=== PATIENT | male | born 1960 | race Caucasian/White ===

== ENCOUNTER → 2017-01-19 | Outpatient (REF) | payer OTHER ==
[2017-01-19 16:16] LABS: ALBUMIN 3.4 GM/DL (3.2-5.2); ALKALINE PHOSPHATASE 69 U/L (45-117); ALT/SGPT 26 U/L (12-78); ANION GAP 9 MEQ/L (8-16); AST/SGOT 26 U/L (15-37); BILIRUBIN,TOTAL 0.6 MG/DL (0.2-1.0); BLOOD UREA NITROGEN 17 MG/DL (7-18); CALCIUM LEVEL 9.4 MG/DL (8.5-10.1); CARBON DIOXIDE LEVEL 29 MEQ/L (21-32); CHLORIDE LEVEL 104 MEQ/L (98-107); CHOLESTEROL LEVEL 149 MG/DL (<200); CREATININE FOR GFR 0.72 MG/DL (0.70-1.30); GLOMERULAR FILTRATION RATE > 60.0 (>56); GLUCOSE, FASTING 109 MG/DL (70-105); POTASSIUM SERUM 4.6 MEQ/L (3.5-5.1); SODIUM LEVEL 142 MEQ/L (136-145); TOTAL PROTEIN 6.5 GM/DL (6.4-8.2); TRIGLYCERIDES LEVEL 126 MG/DL (<150)
== END ==
LOC: M SFHCLACO 08:05
PROVIDERS: ATTEND Physician Assistant
DX: I10 Essential (primary) hypertension (principal); E78.2 Mixed hyperlipidemia

== ENCOUNTER → 2017-04-09 | Outpatient (CLI) | payer OTHER ==
--- NOTE | 2017-04-09 15:29 | REP ---
MRI RIGHT KNEE: TECHNIQUE: Axial proton density fat saturation, sagittal proton density T2 STIR, water excitation, coronal proton density, proton density fat saturation. There is an extensive complex tear of the anterior and posterior horns of the medial meniscus. There may be a tear of the central aspect of the posterior horn of the lateral meniscus. There is increased signal on T2-weighted images involving the anterior cruciate ligament. The fibers of the ACL appear to maintain their course and the findings are most consistent with a partial tear. The posterior cruciate ligament and collateral ligaments are intact. The extensor mechanism is intact. There is mild to moderate global chondromalacia of the patella. There is severe chondromalacia of the medial femoral condyle/tibial plateau with moderate underlying subchondral marrow edema at those locations. There is a moderate joint effusion. There is moderate spurring at the femoral condyles. IMPRESSION: Extensive complex tear of the anterior and posterior horns of the medial meniscus. There may be a tear of the central aspect of the posterior horn of the lateral meniscus. There are findings most consistent with a partial tear of the anterior cruciate ligament. 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 Severe chondromalacia with subchondral marrow edema, medial femoral condyle and tibial plateau. Moderate joint effusion. Signed by Esvin Culver MD 04/09/2017 05:26 P
== END ==
LOC: M RAD 10:43
PROVIDERS: ATTEND Physician Assistant
DX: S83.231A Complex tear of medial meniscus, current injury, right knee, initial encounter (principal); M22.41 Chondromalacia patellae, right knee; M25.461 Effusion, right knee; X58.XXXA Exposure to other specified factors, initial encounter; Y92.9 Unspecified place or not applicable; Y93.9 Activity, unspecified; Y99.8 Other external cause status

== ENCOUNTER 2017-05-02 14:49 | Inpatient (IN) | payer OTHER ==
[~2017-05-02] VITALS: Ht 190.5 cm; Wt 149.7 kg
[2017-05-02] MEDS ORDERED: ALBU17IN2 INH (15:04)
[2017-05-02] MEDS ORDERED: ASPI81TA85 PO (15:04)
[2017-05-02] MEDS ORDERED: BIAX500T13 PO (15:04)
[2017-05-02] MEDS ORDERED: INSP25TA PO (15:04)
[2017-05-02] MEDS ORDERED: LIPI10TA PO (15:04)
[2017-05-02] MEDS ORDERED: CARV25TA PO (15:04)
[2017-05-02] MEDS ORDERED: NAPR500T PO (15:04)
[2017-05-02] MEDS ORDERED: FLUT22IN INH (15:04)
[2017-05-02] MEDS ORDERED: CYCL10TA PO (15:04)
[2017-05-02] MEDS ORDERED: HYDR12.55 PO (15:04)
[2017-05-02] MEDS ORDERED: VANCOMYCIN HCL 1,000 MG, VIAL MATE ADAPTER 1 EACH in D5W 250 ML IV ONE ×3 (17:30→21:15)
[2017-05-02 17:47] LABS: BASO # 0.1 K/mm3 (0.0-0.2); BASO % 0.3 % (0.0-1.0); EOS # 0.1 K/mm3 (0.0-0.50); EOS % 0.7 % (0.0-3.0); LARGE UNSTAINED CELL # 0.4 K/mm3 (0.0-0.4); LYMPH # 2.2 K/mm3 (1.5-4.5); LYMPH % 9.7 % (24.0-44.0); MEAN CORPUSCULAR HEMOGLOBIN 28.9 pg (27.0-33.0); MEAN CORPUSCULAR HGB CONC 34.3 g/dl (32.0-36.5); MEAN CORPUSCULAR VOLUME 84.3 fl (80.0-96.0); MONO # 1.3 K/mm3 (0.0-0.8); MONO % 7.1 % (0.0-5.0); NEUTROPHILS # 14.8 K/mm3 (1.8-7.7); NEUTROPHILS % 80.2 % (36.0-66.0); PLATELET COUNT, AUTOMATED 195 k/mm3 (150-450); RED CELL DISTRIBUTION WIDTH 14.1 % (11.5-14.5); WHITE BLOOD COUNT 18.4 K/mm3 (4.0-10.0)
[2017-05-02 18:17] LABS: ANION GAP 7 MEQ/L (8-16); BLOOD UREA NITROGEN 18 MG/DL (7-18); CALCIUM LEVEL 8.3 MG/DL (8.5-10.1); CARBON DIOXIDE LEVEL 29 MEQ/L (21-32); CHLORIDE LEVEL 103 MEQ/L (98-107); CREATININE FOR GFR 0.94 MG/DL (0.70-1.30); GLOMERULAR FILTRATION RATE > 60.0 (>56); GLUCOSE, FASTING 119 MG/DL (70-105); POTASSIUM SERUM 3.6 MEQ/L (3.5-5.1); SODIUM LEVEL 139 MEQ/L (136-145)
[2017-05-02] MEDS ORDERED: PIPERACILLIN/TAZOBACTAM SOD 4.5 GM in D5W MINI-BAG PLUS 50 ML IV ONE (18:45)
[2017-05-02] MEDS ORDERED: HYDR25TAB PO (18:45)
[2017-05-02] MEDS ORDERED: ALBU17IN INH (18:45)
[2017-05-02] MEDS ORDERED: BACT800T5 PO (18:46)
[2017-05-02] MEDS ORDERED: ALB2.5NEB INH (18:50)
[2017-05-02] MEDS ORDERED: BISACODYL 10 MG SUPP PR PRN (19:15)
[2017-05-02] MEDS ORDERED: MORPHINE 2 MG/ML 1ML SYRINGE IV PRN (19:15)
[2017-05-02] MEDS ORDERED: ALBUTEROL 90 MCG/ACT 8GM HFA INHALER INH PRN (19:15)
[2017-05-02] MEDS ORDERED: IPRATROPIUM 0.5MG/ALBUTEROL 2.5MG INH SOL UD 3ML (DUONEB)(J7620) NEB PRN (19:15)
[2017-05-02] MEDS ORDERED: CYCLOBENZAPRINE 10 MG TAB PO PRN (19:15)
[2017-05-02 19:46] LABS: ERYTHROCYTE SEDIMENTATION RATE 41 mm/hr (0-20)
[2017-05-02] MEDS ORDERED: **hydrALAZINE** 10 MG TAB PO PRN (20:00)
[2017-05-02] MEDS: IPRATROPIUM 0.5MG/ALBUTEROL 2.5MG INH SOL UD 3ML (DUONEB)(J7620) NEB SCH (20:00)
[2017-05-02 20:03] LABS: URIC ACID 7.5 MG/DL (3.5-7.2)
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
[2017-05-02 20:50] VITALS: BP 150/72
[2017-05-02 22:00] VITALS: BP 141/70
[2017-05-02] MEDS: NS 1,000 ML IV SCH (22:02)
[2017-05-02] MEDS: CARVedilol 12.5 MG TAB PO SCH (22:03)
[2017-05-02] MEDS: KETOROLAC 30 MG/ML VIAL (J1885) IV PRN (22:03)
[2017-05-02] MEDS: HEPARIN SOD (PORCINE) 5000 UNITS/ML VIAL SC SCH (22:04)
--- NOTE | 2017-05-02 22:21 | PHACANCOPD ---
PHARMACY VANCOMYCIN DOSING Pt Demographics Demographics Patient Age:57 , Weight:149.700 , Gender: male Adjusted Body Weight Date: 05/02/17, Adjusted Body Weight: [99.5] Kg Events Past 24 Hours Events Past 24 Hours: NO: Dialysis, Diuretic Therapy, Change in CrCl, Fever, Elevation in WBC, Pending Diagnostics, Pending Procedures, Other Vancomycin Vancomycin Target Ranges: 15-20 mcg/ml Vancomycin Load Y/N: Yes Load Dose Date Time Vancomycin Load Dose: 2000MG Date: 05-02 Time: 1999 Vancomycin Dose Date: 05/02/17. Current Vancomycin Dose: [1000MG Q6H] Intermittent Dosing?: No Labs Labs Item Value Date Time White Blood Count 18.4 K/mm3 H 05/02/171738 Creatinine 0.94 MG/DL 05/02/171738 Blood Urea Nitrogen 18 MG/DL 05/02/171738 Vital Signs Label Value Date Time Patient Temperature 99.7 degrees F 05/02/172027 Temperature Source Oral 05/02/172027 Micro Microbiology 05/02/17 Blood Culture, Received Pending 05/02/17 Blood Culture, Received Pending Creatinine Clearance Date:05/02/17. Creatinine Clearance: [105]. Pending Labs Trough 07-10 @1900 Assessment and Plan Maintaining Current Dose?: Yes Reason for dose change: No Dose Change Pharmacist Note Pharmacist Note Date: 05/02/17. Pharmacist note:Dosed at 1000mg q6h with a trough ordered for 07- 10 @1900. Will continue to monitor and make adjustments as needed. RANDY ALMANZA PHARMACY May 02, 2017 22:21
[2017-05-03] MEDS: PIPERACILLIN/TAZOBACTAM SOD 3.375 GM in D5W MINI-BAG PLUS 50 ML IV SCH ×3 (02:02→18:16)
[2017-05-03] MEDS: VANCOMYCIN HCL 1,000 MG, VIAL MATE ADAPTER 1 EACH in D5W 250 ML IV SCH ×4 (04:42→22:03)
[2017-05-03] MEDS: NS 1,000 ML IV SCH (05:13)
[2017-05-03] MEDS: HEPARIN SOD (PORCINE) 5000 UNITS/ML VIAL SC SCH ×3 (05:21→21:18)
[2017-05-03 05:53] LABS: MEAN CORPUSCULAR HGB CONC 34.3 g/dl (32.0-36.5); MEAN CORPUSCULAR VOLUME 84.3 fl (80.0-96.0)
[2017-05-03 06:00] VITALS: BP 127/63
[2017-05-03 06:26] LABS: ANION GAP 8 MEQ/L (8-16); BLOOD UREA NITROGEN 17 MG/DL (7-18); CALCIUM LEVEL 7.8 MG/DL (8.5-10.1); CARBON DIOXIDE LEVEL 27 MEQ/L (21-32); CHLORIDE LEVEL 103 MEQ/L (98-107); CREATININE FOR GFR 0.86 MG/DL (0.70-1.30); GLOMERULAR FILTRATION RATE > 60.0 (>56); GLUCOSE, FASTING 133 MG/DL (70-105); POTASSIUM SERUM 3.2 MEQ/L (3.5-5.1); SODIUM LEVEL 138 MEQ/L (136-145)
[2017-05-03] MEDS ORDERED: POTASSIUM CHLORIDE 10 MEQ SR TABLET PO ONE (07:30)
[2017-05-03] MEDS: IPRATROPIUM 0.5MG/ALBUTEROL 2.5MG INH SOL UD 3ML (DUONEB)(J7620) NEB SCH ×3 (07:30→19:55)
[2017-05-03] MEDS: FLUTICASONE HFA 220 MCG 12 GM INHALER (FLOVENT) INH SCH ×2 (08:10→19:56)
[2017-05-03] MEDS: hydroCHLOROthiazide 25 MG TAB PO SCH (09:55)
[2017-05-03] MEDS: ASPIRIN 81 MG ENTERIC TAB PO SCH (09:57)
[2017-05-03] MEDS: CARVedilol 12.5 MG TAB PO SCH ×2 (09:57→21:18)
[2017-05-03] MEDS: ATORVASTATIN 10 MG TAB PO SCH (09:57)
[2017-05-03] MEDS: KETOROLAC 30 MG/ML VIAL (J1885) IV PRN (11:01)
--- NOTE | 2017-05-03 12:27 | IPN ---
DATE: 05/03/2017 SUBJECTIVE: Mr. De Anda is a 57-year-old male who was seen and examined at the bedside. Patient denies chest pain, orthopnea, PND. Patient also denies nausea , vomiting, diarrhea, constipation. Patient expressed that his right lower extremity pain has decreased compared to yesterday as well as the swelling. Also patient expressed that he feels that the erythema has also decreased. Patient denies overnight issues. Patient has not ambulated today. OBJECTIVE: Vital signs: Temperature 98.9, pulse 67, respiratory rate 19, blood pressure 127/63, pulse oximetry 96 on room air. Total intake from yesterday 990 , total output 0. GENERAL APPEARANCE: Patient was lying in bed, no acute distress. Patient was awake, alert, oriented to time, place and person. HEENT: Normocephalic, atraumatic. Pupils are equal and reactive to light. Oral mucosa is moist. NECK: Soft, supple, no thyromegaly. HEART: Regular rate and rhythm, normal S1, S2. LUNGS: Clear breath sounds bilaterally. Equal air movement. No rales, rhonchi or wheezing was noticed. ABDOMEN: Obese, soft, nontender to palpation. Positive bowel sounds in all quadrants. EXTREMITIES: Patient has right lower extremity pitting edema. Also the skin on the right lower extremity is warm to touch, however, erythema has decreased compared to yesterday. Patient is able to move his toes. Strength of the foot has decreased on the right compared to left secondary to the pain. No open wound, bleeding or drainage was noticed. Patient has normal range of motion of the left lower extremity. Patient has normal sensation in both lower extremities. Patient has positive pulse in both lower extremities. Patient is tender to palpation on the right lower extremity. LABORATORY DATA: White blood cells 12.0, red blood cells 4.11, hemoglobin 11.9, hematocrit 34.7. MCV 84.3, MCH 29, MCHC 34.3, RDW 14, platelet count 190. Sodium 138, potassium 3.2, chloride 103, carbon dioxide 27, anion gap 8, BUN 17, creatinine 0.86. Glomerular filtration rate 160. Fasting glucose 133. Estimated glucose level 137. Estimated A1c 6.4. Calcium 7.8, C-reactive protein 18.2. ASSESSMENT AND PLAN: 1. Hypokalemia. Today patient's potassium has decreased to 3.2. We have ordered 40 mEq of potassium by mouth. We will recheck the potassium again tomorrow. 2. Hypocalcemia. I have ordered albumin level and the result is pending at this time. We will calculate the corrected calcium level. If the calcium is low, we will supply it. 3. Cellulitis of the right lower extremity. Physical examination indicated that patient is better today. Also according to him, his pain has decreased. We will continue patient on current dose of vancomycin and Zosyn. Blood culture is pending at this time. Patient continues to have leukocytosis however it has decreased compared to yesterday. Also patient's C-reactive protein has decreased. Patient is afebrile. We will continue to monitor patient for any abdominal symptoms. I do not believe that this is caused by gout. For pain control, patient is on Toradol 20 mg every 6 hours as needed pain, Flexeril 10 mg three times daily as needed pain for muscle spasm. 4. Hyperlipidemia. Will continue patient on statin (Lipitor 10 mg by mouth daily). 5. Hypertension. At this time, patient is on hydrochlorothiazide 25 mg by mouth daily as well as carvedilol 25 mg by mouth twice daily. Patient is also on hydralazine 10 mg every 6 hours as needed by mouth for systolic blood pressure above 150. However at this time, patient's blood pressure is stable. We will continue to monitor patient for any abnormal symptoms. 6. Deep venous thrombosis (DVT) prophylaxis. Patient is on heparin 5000 daily at bedtime and before meals. 7. Abnormal MRI of the right knee. MRI was done on 04/09/2017 which indicated extensive complex tear of the anterior and posterior horns of the medial meniscus. There may be a tear of the central aspect of the posterior horn of the lateral meniscus. There are findings most consistent with the parietal tear of the anterior cruciate ligament. Also mild to moderate chondromalacia of the patella diffusely, severe chondromalacia with subchondral marrow edema medial femoral condyle and tibial patella as well as moderate joint effusion and this finding was consulted with the orthopedic group. Dr. Driver indicated that patient needs to be followed up as outpatient. Therefore, the consult was canceled. At the time of discharge, patient needs to be followed up with orthopedics. 8. Morbid obesity. BMI 41.3. This is a chronic issue. My preceptor for this patient encounter was Dr. Jessica Fisher. The preceptor was physically present in the building during the encounter and was fully available. As needed, all aspects of the patient interview, examination, medical decision making process, and medical care plan development were reviewed and approved by the preceptor. The preceptor is aware and concurs with the plan as stated in the body of this note and will attest to such by his/her cosignature. I, Jessica Fisher, have both independently examined this patient as well as reviewed the documentation. I have discussed in detail with the resident the findings and plan of treatment as documented in the residents documentation. I will continue to follow the patient and offer further guidance to the patients care as necessary during this hospital stay. CR
[2017-05-03 13:31] LABS: ALBUMIN 2.7 GM/DL (3.2-5.2)
[2017-05-03 14:00] VITALS: BP 135/65
[2017-05-03] MEDS: ACETAMINOPHEN TAB 650MG DOSE (2X325MG) PO PRN (21:19)
--- NOTE | 2017-05-03 21:59 | PHACANCOPD ---
PHARMACY VANCOMYCIN DOSING Pt Demographics Demographics Patient Age:57 , Weight:149.700 , Gender: male Adjusted Body Weight Date: 05/02/17, Adjusted Body Weight: [99.5] Kg Vancomycin Vancomycin Target Ranges: 15-20 mcg/ml Vancomycin Load Y/N: Yes Load Dose Date Time Vancomycin Load Dose: 2000MG Date: 05-02 Time: 1999 Vancomycin Dose Date: 05/02/17. Current Vancomycin Dose: [1000MG Q6H] Intermittent Dosing?: No Labs Micro Microbiology 05/02/17 Blood Culture - Preliminary, Resulted No growth after 24 hours . All specim... 05/02/17 Blood Culture - Preliminary, Resulted No growth after 24 hours . All specim... Creatinine Clearance Date:05/02/17. Creatinine Clearance: [105]. Pending Labs Trough 07-10 @1900 Assessment and Plan Maintaining Current Dose?: Yes Reason for dose change: No Dose Change Pharmacist Note Pharmacist Note 05/03/17: Trough today resulted at 13.0mcg/ml. The patient's scr remains stable today at 0.86. WBC remains elevated but is trending down, ESR and CRP are still elevated, and the patient remains afebrile. Blood cultures are still pending. We will continue the patient's current regimen of 1g IV Q6H for the treatment of RLE cellulitis. We will continue to monitor and draw further levels/make adjustments as needed. Date: 05/02/17. Pharmacist note:Dosed at 1000mg q6h with a trough ordered for 07- 10 @1900. Will continue to monitor and make adjustments as needed. MELLISA CHURCH PHARMACY May 03, 2017 21:59
[2017-05-03 22:00] VITALS: BP 140/69
[2017-05-04] MEDS: IPRATROPIUM 0.5MG/ALBUTEROL 2.5MG INH SOL UD 3ML (DUONEB)(J7620) NEB SCH ×5 (01:24→23:45)
[2017-05-04] MEDS: PIPERACILLIN/TAZOBACTAM SOD 3.375 GM in D5W MINI-BAG PLUS 50 ML IV SCH ×3 (02:34→17:53)
[2017-05-04] MEDS: VANCOMYCIN HCL 1,000 MG, VIAL MATE ADAPTER 1 EACH in D5W 250 ML IV SCH ×4 (03:49→21:27)
[2017-05-04] MEDS: ACETAMINOPHEN TAB 650MG DOSE (2X325MG) PO PRN (03:53)
[2017-05-04] MEDS: HEPARIN SOD (PORCINE) 5000 UNITS/ML VIAL SC SCH ×3 (05:07→21:04)
[2017-05-04 06:00] VITALS: BP 135/65
[2017-05-04] MEDS: FLUTICASONE HFA 220 MCG 12 GM INHALER (FLOVENT) INH SCH ×2 (07:18→19:59)
[2017-05-04 07:35] LABS: MEAN CORPUSCULAR HEMOGLOBIN 28.7 pg (27.0-33.0); MEAN CORPUSCULAR HGB CONC 33.7 g/dl (32.0-36.5); MEAN CORPUSCULAR VOLUME 85.2 fl (80.0-96.0); RED CELL DISTRIBUTION WIDTH 14.1 % (11.5-14.5); WHITE BLOOD COUNT 11.3 K/mm3 (4.0-10.0)
[2017-05-04 07:45] LABS: ANION GAP 7 MEQ/L (8-16); BLOOD UREA NITROGEN 14 MG/DL (7-18); CALCIUM LEVEL 8.3 MG/DL (8.5-10.1); CARBON DIOXIDE LEVEL 28 MEQ/L (21-32); CHLORIDE LEVEL 104 MEQ/L (98-107); CREATININE FOR GFR 0.78 MG/DL (0.70-1.30); GLOMERULAR FILTRATION RATE > 60.0 (>56); GLUCOSE, FASTING 112 MG/DL (70-105); SODIUM LEVEL 139 MEQ/L (136-145)
[2017-05-04] MEDS: ATORVASTATIN 10 MG TAB PO SCH (09:46)
[2017-05-04] MEDS: ASPIRIN 81 MG ENTERIC TAB PO SCH (09:46)
[2017-05-04] MEDS: hydroCHLOROthiazide 25 MG TAB PO SCH (09:46)
[2017-05-04] MEDS: CARVedilol 12.5 MG TAB PO SCH ×2 (09:47→21:04)
--- NOTE | 2017-05-04 12:06 | REP ---
RIGHT FOOT, FOUR VIEWS: HISTORY: Cellulitis. There is no acute fracture or dislocation. The joint spaces are normal in appearance. Osteophytes are present on the inferior and posterior calcaneus. Soft tissue swelling is present. IMPRESSION: There is no acute fracture or dislocation. Signed by Yaya Rojas MD 05/04/2017 12:10 P
[2017-05-04] MEDS: KETOROLAC 30 MG/ML VIAL (J1885) IV PRN ×2 (13:09→21:05)
--- NOTE | 2017-05-04 13:44 | IPNPDOC ---
Text Note Date of Service The patient was seen on 05/04/17. NOTE Subjective: Patient states that the swelling and redness in the right lower extremity is improving. Objective: Vitals: (see below) General: No acute distress, laying comfortably in bed. HEENT: Moist mucous membranes. Neck: No JVD or lymphadenopathy Cardiac: RRR, No murmurs Pulm: Clear to auscultation b/l. No wheezing, rhonchi Abd: NT/ND + BS Ext: Right foot cellulitis with 1+ pitting edema. Area of cellulitis was previously marked on admission with significant improvements of the demarcation. Distal pulses intact. Labs (see below) Images: Right foot x ray 05/04/17 There is no acute fracture or dislocation. The joint spaces are normal in appearance. Osteophytes are present on the inferior and posterior calcaneus. Soft tissue swelling is present. IMPRESSION:There is no acute fracture or dislocation. Assessment/Plan 1. Right lower extremity cellulitis- improved with IV antibiotics. Right foot X- ray (see above). Leukocyte is improving. CRP improving. Pain control. One blood culture positive for gram-positive cocci in clusters. Blood cultures have been repeated 2. Hypertension- controlled 3. Hyperlipidemia- on statin 4. Hypokalemia- replaced 5. Abnormal right knee MRI with extensive complex tear. Dr. Fisher had spoken to the orthopedics recommended outpatient follow-up. DVT prophylaxis- heparin subcutaneous VS,Fishbone, I+O VS, Fishbone, I+O Laboratory Tests 05/04/17 07:10 Red Blood Count 4.31, Mean Corpuscular Volume 85.2, Mean Corpuscular Hemoglobin 28.7, Mean Corpuscular Hemoglobin Concent 33.7, Red Cell Distribution Width 14.1 , Calcium Level 8.3 L Vital Signs Date Time Temp Pulse Resp B/P (MAP) Pulse Ox O2 Delivery O2 Flow Rate FiO2 05/04/17 09:47 65 138/70 05/04/17 09:00 Room Air 05/04/17 06:00 98.9 18 95 I&O- Last 24 Hours up to 6 AM 05/04/17 06:00 Intake Total 3610 ml Output Total 4600 ml Balance -990 ml GAVIOTA TUBBS MD May 04, 2017 13:44
[2017-05-04 14:00] VITALS: BP 147/91
--- NOTE | 2017-05-04 17:08 | REP ---
Bilateral lower extremity Duplex Doppler venous ultrasound: Real time compression and duplex Doppler interrogation of the bilateral lower extremity deep venous system is performed. Bilaterally, the common femoral, superficial femoral and popliteal veins are fully compressible with transducer pressure and demonstrate normal spontaneous and phasic flow, without evidence of deep venous thrombosis. Impression: No evidence of deep venous thrombosis of the bilateral lower extremity femoral popliteal venous system. Signed by Esvin Culver MD 05/04/2017 04:59 P
[2017-05-04 22:00] VITALS: BP 142/65
[2017-05-05] MEDS: PIPERACILLIN/TAZOBACTAM SOD 3.375 GM in D5W MINI-BAG PLUS 50 ML IV SCH ×3 (01:47→17:46)
[2017-05-05] MEDS: VANCOMYCIN HCL 1,000 MG, VIAL MATE ADAPTER 1 EACH in D5W 250 ML IV SCH ×3 (04:01→16:00)
[2017-05-05] MEDS: ACETAMINOPHEN TAB 650MG DOSE (2X325MG) PO PRN (04:04)
[2017-05-05 06:00] VITALS: BP 120/72
[2017-05-05] MEDS: HEPARIN SOD (PORCINE) 5000 UNITS/ML VIAL SC SCH ×3 (06:01→22:12)
[2017-05-05 06:12] LABS: MEAN CORPUSCULAR HGB CONC 34.1 g/dl (32.0-36.5); MEAN CORPUSCULAR VOLUME 84.9 fl (80.0-96.0); RED CELL DISTRIBUTION WIDTH 13.9 % (11.5-14.5); WHITE BLOOD COUNT 10.5 K/mm3 (4.0-10.0)
[2017-05-05] MEDS: KETOROLAC 30 MG/ML VIAL (J1885) IV PRN ×2 (06:16→14:14)
[2017-05-05 06:26] LABS: ANION GAP 7 MEQ/L (8-16); BLOOD UREA NITROGEN 16 MG/DL (7-18); CALCIUM LEVEL 8.3 MG/DL (8.5-10.1); CARBON DIOXIDE LEVEL 27 MEQ/L (21-32); CHLORIDE LEVEL 103 MEQ/L (98-107); CREATININE FOR GFR 0.81 MG/DL (0.70-1.30); GLOMERULAR FILTRATION RATE > 60.0 (>56); GLUCOSE, FASTING 119 MG/DL (70-105); POTASSIUM SERUM 3.6 MEQ/L (3.5-5.1); SODIUM LEVEL 137 MEQ/L (136-145)
[2017-05-05] MEDS: IPRATROPIUM 0.5MG/ALBUTEROL 2.5MG INH SOL UD 3ML (DUONEB)(J7620) NEB SCH ×3 (07:28→19:44)
[2017-05-05] MEDS: FLUTICASONE HFA 220 MCG 12 GM INHALER (FLOVENT) INH SCH ×2 (07:28→19:44)
[2017-05-05 08:05] VITALS: BP 145/69
--- NOTE | 2017-05-05 08:33 | IPNPDOC ---
Text Note Date of Service The patient was seen on 05/05/17. NOTE Subjective: Patient states that the swelling and redness in the right lower extremity continues to improve. no fevers overnuight. Objective: Vitals: (see below) General: No acute distress, laying comfortably in bed. HEENT: Moist mucous membranes. Neck: No JVD or lymphadenopathy Cardiac: RRR, No murmurs Pulm: Clear to auscultation b/l. No wheezing, rhonchi Abd: NT/ND + BS Ext: Right foot cellulitis with 1+ pitting edema. Area of cellulitis was previously marked on admission with significant improvements of the demarcation. Distal pulses intact. Labs (see below) Images: Right foot x ray 05/04/17 There is no acute fracture or dislocation. The joint spaces are normal in appearance. Osteophytes are present on the inferior and posterior calcaneus. Soft tissue swelling is present. IMPRESSION:There is no acute fracture or dislocation. BLE U/s 05/04/17 - negative for DVT Assessment/Plan 1. Right lower extremity cellulitis- improved with IV antibiotics. Right foot X- ray (see above). Leukocyte is improving. CRP improving. Pain control. One blood culture positive for gram-positive cocci in clusters. Blood cultures have been repeated and pending. 2. Hypertension- controlled 3. Hyperlipidemia- on statin 4. Hypokalemia- replaced 5. Abnormal right knee MRI with extensive complex tear. Dr. Fisher had spoken to the orthopedics recommended outpatient follow-up. 6. LE edema - started on lasix. DVT prophylaxis- heparin subcutaneous Plan to d/c when repeat blood cx negative. VS,Fishbone, I+O VS, Fishbone, I+O Laboratory Tests 05/05/17 05:59 Red Blood Count 4.16 L, Mean Corpuscular Volume 84.9, Mean Corpuscular Hemoglobin 29.0, Mean Corpuscular Hemoglobin Concent 34.1, Red Cell Distribution Width 13.9, Calcium Level 8.3 L Vital Signs Date Time Temp Pulse Resp B/P (MAP) Pulse Ox O2 Delivery O2 Flow Rate FiO2 05/05/17 08:05 97.8 75 18 145/69 (94) 95 Room Air I&O- Last 24 Hours up to 6 AM 05/05/17 06:00 Intake Total 2640 ml Output Total 3075 ml Balance -435 ml GAVIOTA TUBBS MD May 05, 2017 08:33
[2017-05-05] MEDS: hydroCHLOROthiazide 25 MG TAB PO SCH (08:35)
[2017-05-05] MEDS: ASPIRIN 81 MG ENTERIC TAB PO SCH (08:36)
[2017-05-05] MEDS: ATORVASTATIN 10 MG TAB PO SCH (08:36)
[2017-05-05] MEDS: CARVedilol 12.5 MG TAB PO SCH ×2 (08:37→19:58)
[2017-05-05] MEDS: FUROSEMIDE 40 MG/4 ML VIAL (J1940) IV SCH ×2 (13:20→17:46)
[2017-05-05 14:00] VITALS: BP 137/67
[2017-05-05] MEDS: DOXYCYCLINE HYCLATE 100 MG TAB PO SCH (19:58)
[2017-05-05 20:00] VITALS: BP 165/55
[2017-05-06] MEDS: IPRATROPIUM 0.5MG/ALBUTEROL 2.5MG INH SOL UD 3ML (DUONEB)(J7620) NEB SCH ×2 (01:29→07:22)
[2017-05-06] MEDS: PIPERACILLIN/TAZOBACTAM SOD 3.375 GM in D5W MINI-BAG PLUS 50 ML IV SCH ×2 (02:22→10:29)
[2017-05-06 05:35] VITALS: BP 151/74
[2017-05-06] MEDS: HEPARIN SOD (PORCINE) 5000 UNITS/ML VIAL SC SCH (05:47)
[2017-05-06 07:20] LABS: MEAN CORPUSCULAR HEMOGLOBIN 28.9 pg (27.0-33.0); MEAN CORPUSCULAR HGB CONC 34.3 g/dl (32.0-36.5); MEAN CORPUSCULAR VOLUME 84.3 fl (80.0-96.0); RED CELL DISTRIBUTION WIDTH 13.4 % (11.5-14.5); WHITE BLOOD COUNT 11.2 K/mm3 (4.0-10.0)
[2017-05-06] MEDS: FLUTICASONE HFA 220 MCG 12 GM INHALER (FLOVENT) INH SCH (07:22)
[2017-05-06 07:30] LABS: ANION GAP 7 MEQ/L (8-16); BLOOD UREA NITROGEN 17 MG/DL (7-18); CALCIUM LEVEL 8.8 MG/DL (8.5-10.1); CARBON DIOXIDE LEVEL 29 MEQ/L (21-32); CHLORIDE LEVEL 102 MEQ/L (98-107); CREATININE FOR GFR 0.81 MG/DL (0.70-1.30); GLOMERULAR FILTRATION RATE > 60.0 (>56); GLUCOSE, FASTING 108 MG/DL (70-105); POTASSIUM SERUM 3.9 MEQ/L (3.5-5.1); SODIUM LEVEL 138 MEQ/L (136-145)
[2017-05-06 08:05] VITALS: BP 141/72
[2017-05-06 08:07] VITALS: BP 141/72
[2017-05-06] MEDS ORDERED: DOXY100T2 PO (08:26)
[2017-05-06] MEDS: ATORVASTATIN 10 MG TAB PO SCH (08:54)
[2017-05-06 08:55] VITALS: BP 141/72
[2017-05-06] MEDS: CARVedilol 12.5 MG TAB PO SCH (08:55)
[2017-05-06] MEDS: ASPIRIN 81 MG ENTERIC TAB PO SCH (08:56)
[2017-05-06] MEDS: DOXYCYCLINE HYCLATE 100 MG TAB PO SCH (08:56)
[2017-05-06] MEDS: hydroCHLOROthiazide 25 MG TAB PO SCH (08:56)
[2017-05-06] MEDS: KETOROLAC 30 MG/ML VIAL (J1885) IV PRN (08:57)
[2017-05-06] MEDS: FUROSEMIDE 40 MG/4 ML VIAL (J1940) IV SCH (08:57)
[2017-05-06] MEDS ORDERED: ISOVUE-370 76% 100ML VIAL (Q9967) As Ordered ONE (11:15)
--- NOTE | 2017-05-06 12:08 | REP ---
CT OF THE RIGHT FOOT WITH IV CONTRAST: CT right foot performed following the intravenous administration of 100 mL of Isovue 370. Sagittal and coronal reconstruction images are performed. The phalanges of the toes are not completely visualized on the obtained images. The remaining osseous structures of the right foot appear intact with no fracture and no evidence of osseous destruction. There is mild joint space narrowing, subchondral sclerosis and spurring at the tibiotalar joint. There is moderate inferior and posterior calcaneal spurring. There is mild diffuse narrowing of the intertarsal and tarsal/metatarsal joints as well as of the metatarsophalangeal joints. There is ill-defined edema in the soft tissues predominately in the dorsal aspect of the foot laterally. No definite abscess is visualized. IMPRESSION: Edema/cellulitis in the dorsal soft tissues of the foot laterally. No evidence of abscess. No evidence of acute fracture or osseous destruction of the visualized osseous structures of the right foot. Signed by Esvin Culver MD 05/06/2017 03:56 P
--- NOTE | 2017-05-06 13:27 | DS.PDOC ---
Discharge Summary General Date of Admission May 03, 2017 at 10:55 Date of Discharge 05/06/17 Attending Physician: GAVOITA TUBBS MD Discharge Summary PROCEDURES PERFORMED DURING STAY: None. ADMITTING/DISCHARGE DIAGNOSES: 1. Right lower extremity cellulitis 2. 1 Bd cx + Staph Hominis, likely a contaminant, repeat bld cx negative. 2. Hypertension 3. Hyperlipidemia 4. Hypokalemia 5. Abnormal right knee MRI with extensive complex tear. Dr. Fisher had spoken to the orthopedics recommended outpatient follow-up. 6. Morbid obesity COMPLICATIONS/CHIEF COMPLAINT: Cellulitis Of Foot, Right. HISTORY OF PRESENT ILLNESS/HOSPITAL COURSE: 57-year-old male past medical history of hypertension, hyperlipidemia who presents complaining of swelling and redness of the right lower extremity. Patient was noted to have cellulitis of the right lower extremity subsequently started on broad-spectrum antibiotics, which have been deescalated to doxycycline. Patient responded to therapy well with significant improvements of his inflammatory markers. He is currently hemodynamically stable. CAT scan of the right foot with no abscess formation. Patient to have 1 blood culture that was positive for staph hominis, which may be a contaminant. Repeat blood cultures negative. The patient will complete a full course of doxycycline. Patient will need to follow-up as care physician in 1-2 weeks and return to the ER if symptoms worsen. DISCHARGE MEDICATIONS: Please see below. ALLERGIES: Please see below. PHYSICAL EXAMINATION ON DISCHARGE: Vitals: (see below) General: No acute distress, laying comfortably in bed. HEENT: Moist mucous membranes. Neck: No JVD or lymphadenopathy Cardiac: RRR, No murmurs Pulm: Clear to auscultation b/l. No wheezing, rhonchi Abd: NT/ND + BS Ext: Right foot cellulitis with 1+ pitting edema, blister with skin intact. Area of cellulitis was previously marked on admission with significant improvements of the demarcation. Distal pulses intact. Tender to palpation. LABORATORY DATA: Please see below. IMAGING: CT Right Foot 05/06/17 Edema/cellulitis in the dorsal soft tissues of the foot laterally. No evidence of abscess. No evidence of acute fracture or osseous destruction of the visualized osseous structures of the right foot. PROGNOSIS: Fair ACTIVITY: As tolerated. DIET: Low Na DISCHARGE PLAN/DISPOSITION: D/c home DISCHARGE INSTRUCTIONS: 1. F/u with PCP in 1-2 weeks. Return to ED if symptoms worsen. DISCHARGE CONDITION: Stable. TIME SPENT ON DISCHARGE: Greater than 30 minutes. Vital Signs/I&Os Vital Signs Date Time Temp Pulse Resp B/P (MAP) Pulse Ox O2 Delivery O2 Flow Rate FiO2 05/06/17 12:26 Room Air 05/06/17 08:55 79 141/72 05/06/17 08:07 98.5 20 95 I&O- Last 24 Hours up to 6 AM 05/06/17 06:00 Intake Total 2130 ml Output Total 4550 ml Balance -2420 ml Laboratory Data Labs 24H Laboratory Tests 2 05/05/17 15:03: Vancomycin Level Trough 18.5 05/06/17 06:57: Anion Gap 7L, Glomerular Filtration Rate > 60.0, Blood Urea Nitrogen 17, Creatinine 0.81, Sodium Level 138, Potassium Level 3.9, Chloride Level 102, Carbon Dioxide Level 29, Calcium Level 8.8, C-Reactive Protein, Quantitative 6.20H CBC/BMP Laboratory Tests 05/06/17 06:57 Red Blood Count 4.38, Mean Corpuscular Volume 84.3, Mean Corpuscular Hemoglobin 28.9, Mean Corpuscular Hemoglobin Concent 34.3, Red Cell Distribution Width 13.4 , Calcium Level 8.8 Microbiology Microbiology 05/04/17 Blood Culture - Preliminary, Resulted No Growth after 48 hours. All Specime... 05/04/17 Blood Culture - Preliminary, Resulted No Growth after 48 hours. All Specime... 05/02/17 Blood Culture - Preliminary, Resulted No Growth after 72 hours. All specime... 05/02/17 Blood Culture - Final, Complete Staphylococcus Hominis Ssp Cara Discharge Medications Scheduled Aspirin (Aspir-81) 81 Mg Tab, 81 MG PO DAILY, (Reported) Atorvastatin Calcium (Lipitor) 10 Mg Tab, 10 MG PO DAILY, (Reported) Carvedilol (Carvedilol) 25 Mg Tab, 25 MG PO BID, (Reported) Doxycycline Hyclate (Doxycycline Hyclate) 100 Mg Tab, 100 MG PO BID Eplerenone (Inspra) 25 Mg Tab, 25 MG PO DAILY, (Reported) Fluticasone Propionate (Flovent Hfa 220 MCG) 120 Puff/12 Gm Aero, 2 PUFF INH BID , (Reported) Hydrochlorothiazide (Hydrochlorothiazide) 25 Mg Tab, 25 MG PO DAILY, (Reported) Naproxen (Naprosyn) 500 Mg Tab, 500 MG PO BID, (Reported) Scheduled PRN Albuterol Sulfate (Ventolin Hfa) 200 Puff/8 Gm Aers, 2 PUFF INH Q4H PRN for SHORTNESS OF BREATH, (Reported) Albuterol Sulfate (Albuterol Sulfate) 2.5 Mg/0.5 Ml Neb, 2.5 MG INH Q4H PRN for SHORTNESS OF BREATH, (Reported) Cyclobenzaprine HCl (Cyclobenzaprine HCl) 10 Mg Tab, 10 MG PO TID PRN for MUSCLE SPASMS, (Reported) Allergies Coded Allergies: No Known Allergies (Unverified , 05/02/17) GAVIOTA TUBBS MD May 06, 2017 13:27
== END 2017-05-06 14:15 | disposition home or self-care (01) | DRG 383 ==
LOC: M ED 14:49 → M ED INP 19:46 → M MSPAV 20:50 → OBSVTOIN 05-03 10:55
PROVIDERS: ADMIT Internal Medicine; ATTEND Internal Medicine
DX: L03.115 Cellulitis of right lower limb (principal); Z68.41 Body mass index [BMI] 40.0-44.9, adult; I10 Essential (primary) hypertension; E66.01 Morbid (severe) obesity due to excess calories; E83.51 Hypocalcemia; E87.6 Hypokalemia; E78.5 Hyperlipidemia, unspecified; Z79.82 Long term (current) use of aspirin; Z79.899 Other long term (current) drug therapy; M23.611 Other spontaneous disruption of anterior cruciate ligament of right knee; M22.41 Chondromalacia patellae, right knee

== ENCOUNTER → 2017-06-01 | Outpatient (CLI) | payer OTHER ==
[~2017-06-01] MED LIST: ALB2.5NEB INH; ALBU17IN INH; ALBU17IN2 INH; ASPI81TA85 PO; BACT800T5 PO; BIAX500T13 PO; CARV25TA PO; CYCL10TA PO; DOXY100T2 PO; FLUT22IN INH; HYDR12.55 PO; HYDR25TAB PO; INSP25TA PO; LIPI10TA PO; NAPR500T PO
[2017-06-01 18:33] LABS: BASO # 0.1 K/mm3 (0.0-0.2); BASO % 0.9 % (0.0-1.0); EOS # 0.6 K/mm3 (0.0-0.50); EOS % 5.3 % (0.0-3.0); LARGE UNSTAINED CELL # 0.2 K/mm3 (0.0-0.4); LARGE UNSTAINED CELL % 1.4 % (0.0-4.0); LYMPH % 17.9 % (24.0-44.0); MEAN CORPUSCULAR HEMOGLOBIN 28.6 pg (27.0-33.0); MEAN CORPUSCULAR HGB CONC 34.1 g/dl (32.0-36.5); MEAN CORPUSCULAR VOLUME 83.7 fl (80.0-96.0); MONO # 0.7 K/mm3 (0.0-0.8); MONO % 6.9 % (0.0-5.0); NEUTROPHILS # 7.2 K/mm3 (1.8-7.7); NEUTROPHILS % 67.6 % (36.0-66.0); PLATELET COUNT, AUTOMATED 213 k/mm3 (150-450); RED CELL DISTRIBUTION WIDTH 13.6 % (11.5-14.5); WHITE BLOOD COUNT 10.6 K/mm3 (4.0-10.0)
[2017-06-01 19:11] LABS: ERYTHROCYTE SEDIMENTATION RATE 11 mm/hr (0-20)
== END ==
LOC: M LAB 17:32
PROVIDERS: ATTEND Physician Assistant Medical
DX: L03.115 Cellulitis of right lower limb (principal)

== ENCOUNTER → 2017-06-08 | Outpatient (REF) | payer OTHER ==
[2017-06-08 15:45] LABS: BASO # 0.1 K/mm3 (0.0-0.2); BASO % 0.7 % (0.0-1.0); EOS # 0.6 K/mm3 (0.0-0.50); EOS % 5.4 % (0.0-3.0); LARGE UNSTAINED CELL # 0.2 K/mm3 (0.0-0.4); LARGE UNSTAINED CELL % 1.9 % (0.0-4.0); LYMPH % 16.5 % (24.0-44.0); MEAN CORPUSCULAR HEMOGLOBIN 28.5 pg (27.0-33.0); MEAN CORPUSCULAR HGB CONC 34.4 g/dl (32.0-36.5); MONO # 0.7 K/mm3 (0.0-0.8); MONO % 6.6 % (0.0-5.0); NEUTROPHILS # 7.3 K/mm3 (1.8-7.7); NEUTROPHILS % 68.8 % (36.0-66.0); PLATELET COUNT, AUTOMATED 241 k/mm3 (150-450); RED CELL DISTRIBUTION WIDTH 13.6 % (11.5-14.5); WHITE BLOOD COUNT 10.6 K/mm3 (4.0-10.0)
[2017-06-08 16:14] LABS: ERYTHROCYTE SEDIMENTATION RATE 11 mm/hr (0-20)
== END ==
LOC: M SFHCPLAZ 14:54
PROVIDERS: ATTEND Physician Assistant Medical
DX: L03.115 Cellulitis of right lower limb (principal)

== ENCOUNTER → 2017-06-15 | Outpatient (REF) | payer OTHER ==
[2017-06-15 16:44] LABS: ALBUMIN/GLOBULIN RATIO 1.18 (1.00-1.93); ALKALINE PHOSPHATASE 61 U/L (45-117); ALT/SGPT 30 U/L (12-78); ANION GAP 9 MEQ/L (8-16); AST/SGOT 23 U/L (15-37); BILIRUBIN,TOTAL 1.2 MG/DL (0.2-1.0); BLOOD UREA NITROGEN 22 MG/DL (7-18); CALCIUM LEVEL 9.1 MG/DL (8.5-10.1); CARBON DIOXIDE LEVEL 29 MEQ/L (21-32); CHLORIDE LEVEL 104 MEQ/L (98-107); CHOLESTEROL LEVEL 151 MG/DL (<200); CREATININE FOR GFR 0.77 MG/DL (0.70-1.30); GLOMERULAR FILTRATION RATE > 60.0 (>56); GLUCOSE, FASTING 112 MG/DL (70-105); POTASSIUM SERUM 4.3 MEQ/L (3.5-5.1); SODIUM LEVEL 142 MEQ/L (136-145); TOTAL PROTEIN 7.4 GM/DL (6.4-8.2); TRIGLYCERIDES LEVEL 113 MG/DL (<150)
== END ==
LOC: M SFHCLACO 09:56
PROVIDERS: ATTEND Physician Assistant
DX: I10 Essential (primary) hypertension (principal)

== ENCOUNTER → 2017-08-03 | Outpatient (REF) | payer OTHER ==
[2017-08-03 16:00] LABS: ALBUMIN 3.7 GM/DL (3.2-5.2); ALBUMIN/GLOBULIN RATIO 1.32 (1.00-1.93); ALKALINE PHOSPHATASE 58 U/L (45-117); ALT/SGPT 26 U/L (12-78); ANION GAP 6 MEQ/L (8-16); AST/SGOT 24 U/L (15-37); BLOOD UREA NITROGEN 16 MG/DL (7-18); CALCIUM LEVEL 8.9 MG/DL (8.5-10.1); CARBON DIOXIDE LEVEL 32 MEQ/L (21-32); CHLORIDE LEVEL 102 MEQ/L (98-107); CHOLESTEROL LEVEL 121 MG/DL (<200); CREATININE FOR GFR 0.73 MG/DL (0.70-1.30); GLOMERULAR FILTRATION RATE > 60.0 (>56); GLUCOSE, FASTING 114 MG/DL (70-105); POTASSIUM SERUM 4.3 MEQ/L (3.5-5.1); SODIUM LEVEL 140 MEQ/L (136-145); TOTAL PROTEIN 6.5 GM/DL (6.4-8.2); TRIGLYCERIDES LEVEL 100 MG/DL (<150)
== END ==
LOC: M SFHCLACO 09:28
PROVIDERS: ATTEND Physician Assistant
DX: I10 Essential (primary) hypertension (principal); L03.115 Cellulitis of right lower limb

== ENCOUNTER → 2017-11-04 | Outpatient (REF) | payer OTHER ==
[2017-11-04 15:42] LABS: ALBUMIN 3.6 GM/DL (3.2-5.2); ALBUMIN/GLOBULIN RATIO 1.09 (1.00-1.93); ALKALINE PHOSPHATASE 66 U/L (45-117); ALT/SGPT 24 U/L (12-78); ANION GAP 7 MEQ/L (8-16); AST/SGOT 20 U/L (7-37); BILIRUBIN,TOTAL 0.7 MG/DL (0.2-1.0); BLOOD UREA NITROGEN 20 MG/DL (7-18); CALCIUM LEVEL 8.6 MG/DL (8.5-10.1); CARBON DIOXIDE LEVEL 30 MEQ/L (21-32); CHLORIDE LEVEL 103 MEQ/L (98-107); CHOLESTEROL LEVEL 138 MG/DL (<200); CHOLESTEROL RISK RATIO 2.421 (<5); CREATININE FOR GFR 0.75 MG/DL (0.70-1.30); GLOMERULAR FILTRATION RATE > 60.0 (>56); GLUCOSE, FASTING 115 MG/DL (70-105); HDL CHOLESTEROL 57 MG/DL (>40); LDL CHOLESTEROL 65.4 MG/DL (<100); NON-HDL-C 81 MG/DL; POTASSIUM SERUM 4.3 MEQ/L (3.5-5.1); SODIUM LEVEL 140 MEQ/L (136-145); TOTAL PROTEIN 6.9 GM/DL (6.4-8.2); TRIGLYCERIDES LEVEL 78 MG/DL (<150)
[2017-11-04 16:32] LABS: ESTIMATED AVERAGE GLUCOSE 137 MG/DL (60-110); HEMOGLOBIN A1c 6.4 %
== END ==
LOC: M SFHCLACO 08:53
DX: I10 Essential (primary) hypertension (principal); E78.2 Mixed hyperlipidemia; Z68.41 Body mass index [BMI] 40.0-44.9, adult; E11.9 Type 2 diabetes mellitus without complications

== ENCOUNTER → 2018-05-03 | Outpatient (REF) | payer OTHER | LOC: M SFHCLACO 09:46 | DX: I10 Essential (primary) hypertension (principal); Z68.41 Body mass index [BMI] 40.0-44.9, adult; E78.2 Mixed hyperlipidemia; E11.9 Type 2 diabetes mellitus without complications ==

== ENCOUNTER → 2018-05-05 | Outpatient (REF) | payer OTHER | LOC: M SFHCLACO 08:09 | DX: E78.2 Mixed hyperlipidemia (principal); I10 Essential (primary) hypertension; Z68.41 Body mass index [BMI] 40.0-44.9, adult; E11.9 Type 2 diabetes mellitus without complications ==

== ENCOUNTER 2018-09-01 13:03 | Inpatient (IN) | payer OTHER ==
[2018-09-01 14:25] LABS: BASO # 0.1 10^3/uL (0.0-0.2); BASO % 0.4 % (0.0-1.0); EOS # 0.1 10^3/uL (0.0-0.50); EOS % 0.6 % (0.0-3.0); HEMATOCRIT 43.5 % (42.0-52.0); HEMOGLOBIN 14.3 g/dl (13.5-17.5); IMMATURE GRANULOCYTE % 0.6 % (0-3.0); LYMPH # 1.2 10^3/uL (1.5-4.5); LYMPH % 8.9 % (24.0-44.0); MEAN CORPUSCULAR HEMOGLOBIN 28.1 pg (27.0-33.0); MEAN CORPUSCULAR HGB CONC 32.9 g/dl (32.0-36.5); MEAN CORPUSCULAR VOLUME 85.6 fl (80.0-96.0); MONO # 1.2 10^3/uL (0.0-0.8); MONO % 9.2 % (0.0-5.0); NEUTROPHILS # 10.6 10^3/uL (1.8-7.7); NEUTROPHILS % 80.3 % (36.0-66.0); PLATELET COUNT, AUTOMATED 266 10^3/uL (150-450); RED BLOOD COUNT 5.08 10^6/uL (4.30-6.10); RED CELL DISTRIBUTION WIDTH 14.1 % (11.5-14.5); WHITE BLOOD COUNT 13.1 10^3/uL (4.0-10.0)
[2018-09-01 14:52] LABS: INR 1.01; PROTHROMBIN TIME 13.4 SECONDS (12.1-14.4)
[2018-09-01 14:54] LABS: LACTIC ACID SEPSIS PROTOCOL 1.6 MMOL/L (0.4-2.0)
[2018-09-01 14:55] LABS: ALBUMIN 3.1 GM/DL (3.2-5.2); ALBUMIN/GLOBULIN RATIO 0.79 (1.00-1.93); ALKALINE PHOSPHATASE 78 U/L (45-117); ALT/SGPT 39 U/L (12-78); ANION GAP 8 MEQ/L (8-16); AST/SGOT 38 U/L (7-37); BILIRUBIN,DIRECT 0.2 MG/DL (0.0-0.2); BLOOD UREA NITROGEN 14 MG/DL (7-18); CALCIUM LEVEL 8.8 MG/DL (8.5-10.1); CARBON DIOXIDE LEVEL 30 MEQ/L (21-32); CHLORIDE LEVEL 101 MEQ/L (98-107); CREATININE FOR GFR 0.84 MG/DL (0.70-1.30); GLOMERULAR FILTRATION RATE > 60.0 (>56); GLUCOSE, FASTING 135 MG/DL (70-100); POTASSIUM SERUM 3.4 MEQ/L (3.5-5.1); SODIUM LEVEL 139 MEQ/L (136-145)
[2018-09-01 15:37] LABS: ERYTHROCYTE SEDIMENTATION RATE 63 mm/hr (0-20)
[2018-09-01] MEDS: VANCOMYCIN HCL 1,000 MG, VIAL MATE ADAPTER 1 EACH in D5W 250 ML IV (16:32)
[2018-09-01] MEDS ORDERED: VANCOMYCIN HCL 1,000 MG, VIAL MATE ADAPTER 1 EACH in D5W 250 ML IV (22:00)
[2018-09-01] MEDS ORDERED: VANCOMYCIN 1000 MG/20 ML VIAL (J3370) IV (22:00)
[2018-09-01] MEDS ORDERED: ALBUTEROL SULFATE 2.5 MG/0.5 ML INH NEB SOLN INH (22:00)
[2018-09-01] MEDS ORDERED: DEXTROSE 50% 50 ML SYRINGE IV (22:00)
[2018-09-01] MEDS ORDERED: GLUCOSE 4 GM CHEW TABLET PO (22:00)
[2018-09-01] MEDS ORDERED: GLUCAGON FOR INJ 1 MG VIAL (J1610) SC (22:00)
[2018-09-01] MEDS: FUROSEMIDE 40 MG TAB PO (22:00)
[2018-09-01] MEDS: MORPHINE 4 MG/ML 1ML VIAL/SYRINGE (J2270) IV (22:06)
[2018-09-01] MEDS: ACETAMINOPHEN TAB 650MG DOSE (2X325MG) PO (22:07)
[2018-09-01 22:12] LABS: BEDSIDE GLUCOSE 120 MG/DL (70-105)
[2018-09-01] MEDS: HumaLOG INSULIN (NovoLOG) PER UNIT SC (22:12)
[2018-09-01 22:14] LABS: MAGNESIUM LEVEL 2.2 MG/DL (1.8-2.4); URIC ACID 5.4 MG/DL (3.5-7.2)
[2018-09-01 23:02] LABS: ESTIMATED AVERAGE GLUCOSE 143 MG/DL (60-110); HEMOGLOBIN A1c 6.6 %
[2018-09-01] MEDS: POTASSIUM CHLORIDE 10 MEQ SR TABLET PO (23:38)
[2018-09-02] MEDS: VANCOMYCIN HCL 1,000 MG, VIAL MATE ADAPTER 1 EACH in D5W 250 ML IV ×3 (00:03→20:17)
[2018-09-02] MEDS: NS 1,000 ML IV ×3 (00:03→17:04)
[2018-09-02] MEDS: MORPHINE 4 MG/ML 1ML VIAL/SYRINGE (J2270) IV ×4 (05:08→22:34)
[2018-09-02] MEDS: HEPARIN SOD (PORCINE) 5000 UNITS/ML VIAL SC ×3 (05:09→20:17)
[2018-09-02 06:07] LABS: BASO # 0.1 10^3/uL (0.0-0.2); BASO % 0.5 % (0.0-1.0); EOS # 0.1 10^3/uL (0.0-0.50); EOS % 0.8 % (0.0-3.0); HEMATOCRIT 38.4 % (42.0-52.0); HEMOGLOBIN 12.6 g/dl (13.5-17.5); IMMATURE GRANULOCYTE % 1.1 % (0-3.0); LYMPH # 1.4 10^3/uL (1.5-4.5); LYMPH % 10.5 % (24.0-44.0); MEAN CORPUSCULAR HEMOGLOBIN 28.1 pg (27.0-33.0); MEAN CORPUSCULAR HGB CONC 32.8 g/dl (32.0-36.5); MEAN CORPUSCULAR VOLUME 85.7 fl (80.0-96.0); MONO # 1.8 10^3/uL (0.0-0.8); MONO % 13.3 % (0.0-5.0); NEUTROPHILS # 9.7 10^3/uL (1.8-7.7); NEUTROPHILS % 73.8 % (36.0-66.0); PLATELET COUNT, AUTOMATED 252 10^3/uL (150-450); RED BLOOD COUNT 4.48 10^6/uL (4.30-6.10); RED CELL DISTRIBUTION WIDTH 14.1 % (11.5-14.5); WHITE BLOOD COUNT 13.2 10^3/uL (4.0-10.0)
[2018-09-02 06:30] LABS: ANION GAP 7 MEQ/L (8-16); BLOOD UREA NITROGEN 13 MG/DL (7-18); CALCIUM LEVEL 8.7 MG/DL (8.5-10.1); CARBON DIOXIDE LEVEL 29 MEQ/L (21-32); CHLORIDE LEVEL 101 MEQ/L (98-107); CREATININE FOR GFR 0.72 MG/DL (0.70-1.30); GLOMERULAR FILTRATION RATE > 60.0 (>56); GLUCOSE, FASTING 110 MG/DL (70-100); POTASSIUM SERUM 3.5 MEQ/L (3.5-5.1); SODIUM LEVEL 137 MEQ/L (136-145)
[2018-09-02] MEDS ORDERED: ISOVUE-370 76% 100ML VIAL (Q9967) As Ordered (07:55)
[2018-09-02] MEDS: ASPIRIN 81 MG ENTERIC TAB PO (08:56)
[2018-09-02] MEDS: CARVedilol 12.5 MG TAB PO ×2 (08:56→20:18)
[2018-09-02] MEDS: FUROSEMIDE 40 MG TAB PO (08:56)
[2018-09-02] MEDS: VANCOMYCIN 1000 MG/20 ML VIAL (J3370) IV ×2 (08:56→14:39)
[2018-09-02] MEDS: HumaLOG INSULIN (NovoLOG) PER UNIT SC ×4 (08:57→21:00)
[2018-09-02 11:31] LABS: BEDSIDE GLUCOSE 132 MG/DL (70-105)
[2018-09-02 11:38] LABS: ANION GAP 7 MEQ/L (8-16); BLOOD UREA NITROGEN 12 MG/DL (7-18); CALCIUM LEVEL 8.5 MG/DL (8.5-10.1); CARBON DIOXIDE LEVEL 31 MEQ/L (21-32); CHLORIDE LEVEL 99 MEQ/L (98-107); GLOMERULAR FILTRATION RATE > 60.0 (>56); GLUCOSE, FASTING 158 MG/DL (70-100); POTASSIUM SERUM 3.2 MEQ/L (3.5-5.1); SODIUM LEVEL 137 MEQ/L (136-145)
[2018-09-02 16:24] LABS: ANION GAP 7 MEQ/L (8-16); BLOOD UREA NITROGEN 13 MG/DL (7-18); CALCIUM LEVEL 8.1 MG/DL (8.5-10.1); CARBON DIOXIDE LEVEL 28 MEQ/L (21-32); CHLORIDE LEVEL 102 MEQ/L (98-107); CREATININE FOR GFR 0.74 MG/DL (0.70-1.30); GLOMERULAR FILTRATION RATE > 60.0 (>56); GLUCOSE, FASTING 134 MG/DL (70-100); POTASSIUM SERUM 3.5 MEQ/L (3.5-5.1); SODIUM LEVEL 137 MEQ/L (136-145)
[2018-09-02 16:51] LABS: BEDSIDE GLUCOSE 134 MG/DL (70-105)
[2018-09-02 19:41] LABS: VANCOMYCIN LEVEL TROUGH 12.3 UG/ML (10.0-20.0)
[2018-09-02 19:43] LABS: BEDSIDE GLUCOSE 146 MG/DL (70-105)
[2018-09-02] MEDS ORDERED: HEPARIN SOD (PORCINE) 5000 UNITS/ML VIAL As Ordered (20:09)
[2018-09-02] MEDS: ATORVASTATIN 10 MG TAB PO (20:18)
[2018-09-02 22:22] LABS: ANION GAP 7 MEQ/L (8-16); BLOOD UREA NITROGEN 17 MG/DL (7-18); CALCIUM LEVEL 8.2 MG/DL (8.5-10.1); CARBON DIOXIDE LEVEL 28 MEQ/L (21-32); CHLORIDE LEVEL 102 MEQ/L (98-107); GLOMERULAR FILTRATION RATE > 60.0 (>56); GLUCOSE, FASTING 136 MG/DL (70-100); POTASSIUM SERUM 3.4 MEQ/L (3.5-5.1); SODIUM LEVEL 137 MEQ/L (136-145)
[2018-09-03] MEDS: VANCOMYCIN HCL 1,000 MG, VIAL MATE ADAPTER 1 EACH in D5W 250 ML IV ×4 (01:12→20:35)
[2018-09-03 03:59] LABS: BASO # 0.1 10^3/uL (0.0-0.2); BASO % 0.5 % (0.0-1.0); EOS # 0.1 10^3/uL (0.0-0.50); EOS % 1.1 % (0.0-3.0); HEMATOCRIT 35.2 % (42.0-52.0); HEMOGLOBIN 11.7 g/dl (13.5-17.5); IMMATURE GRANULOCYTE % 1.6 % (0-3.0); LYMPH # 1.6 10^3/uL (1.5-4.5); LYMPH % 13.1 % (24.0-44.0); MEAN CORPUSCULAR HEMOGLOBIN 28.1 pg (27.0-33.0); MEAN CORPUSCULAR HGB CONC 33.2 g/dl (32.0-36.5); MEAN CORPUSCULAR VOLUME 84.4 fl (80.0-96.0); MONO # 1.5 10^3/uL (0.0-0.8); MONO % 12.4 % (0.0-5.0); NEUTROPHILS # 8.7 10^3/uL (1.8-7.7); NEUTROPHILS % 71.3 % (36.0-66.0); PLATELET COUNT, AUTOMATED 268 10^3/uL (150-450); RED BLOOD COUNT 4.17 10^6/uL (4.30-6.10); RED CELL DISTRIBUTION WIDTH 13.9 % (11.5-14.5); WHITE BLOOD COUNT 12.2 10^3/uL (4.0-10.0)
[2018-09-03 04:33] LABS: ANION GAP 7 MEQ/L (8-16); BLOOD UREA NITROGEN 17 MG/DL (7-18); CALCIUM LEVEL 7.9 MG/DL (8.5-10.1); CARBON DIOXIDE LEVEL 27 MEQ/L (21-32); CHLORIDE LEVEL 103 MEQ/L (98-107); CREATININE FOR GFR 0.72 MG/DL (0.70-1.30); GLOMERULAR FILTRATION RATE > 60.0 (>56); GLUCOSE, FASTING 124 MG/DL (70-100); POTASSIUM SERUM 3.5 MEQ/L (3.5-5.1); SODIUM LEVEL 137 MEQ/L (136-145)
[2018-09-03] MEDS: HEPARIN SOD (PORCINE) 5000 UNITS/ML VIAL SC ×3 (05:35→20:35)
[2018-09-03] MEDS: ACETAMINOPHEN TAB 650MG DOSE (2X325MG) PO ×2 (05:36→10:45)
[2018-09-03] MEDS: HumaLOG INSULIN (NovoLOG) PER UNIT SC ×4 (08:18→20:34)
[2018-09-03] MEDS: ASPIRIN 81 MG ENTERIC TAB PO (08:19)
[2018-09-03] MEDS: CARVedilol 12.5 MG TAB PO ×2 (08:19→20:34)
[2018-09-03] MEDS: FUROSEMIDE 40 MG TAB PO (08:19)
[2018-09-03 10:31] LABS: ANION GAP 7 MEQ/L (8-16); BLOOD UREA NITROGEN 17 MG/DL (7-18); CARBON DIOXIDE LEVEL 28 MEQ/L (21-32); CHLORIDE LEVEL 104 MEQ/L (98-107); CREATININE FOR GFR 0.78 MG/DL (0.70-1.30); GLOMERULAR FILTRATION RATE > 60.0 (>56); GLUCOSE, FASTING 156 MG/DL (70-100); POTASSIUM SERUM 3.4 MEQ/L (3.5-5.1); SODIUM LEVEL 139 MEQ/L (136-145)
[2018-09-03 11:07] LABS: BEDSIDE GLUCOSE 143 MG/DL (70-105)
[2018-09-03] MEDS: MORPHINE 4 MG/ML 1ML VIAL/SYRINGE (J2270) IV (11:58)
[2018-09-03 16:28] LABS: ANION GAP 8 MEQ/L (8-16); BLOOD UREA NITROGEN 18 MG/DL (7-18); CALCIUM LEVEL 8.2 MG/DL (8.5-10.1); CARBON DIOXIDE LEVEL 28 MEQ/L (21-32); CHLORIDE LEVEL 102 MEQ/L (98-107); CREATININE FOR GFR 0.75 MG/DL (0.70-1.30); GLOMERULAR FILTRATION RATE > 60.0 (>56); GLUCOSE, FASTING 117 MG/DL (70-100); POTASSIUM SERUM 3.4 MEQ/L (3.5-5.1); SODIUM LEVEL 138 MEQ/L (136-145)
[2018-09-03 17:00] LABS: BEDSIDE GLUCOSE 127 MG/DL (70-105)
[2018-09-03] MEDS: oxyCODONE 5MG TAB PO (17:56)
[2018-09-03] MEDS: ACETAMINOPHEN 500 MG TAB PO (19:36)
[2018-09-03 20:11] LABS: BEDSIDE GLUCOSE 133 MG/DL (70-105)
[2018-09-03] MEDS ORDERED: HEPARIN SOD (PORCINE) 5000 UNITS/ML VIAL As Ordered (20:27)
[2018-09-03] MEDS: ATORVASTATIN 10 MG TAB PO (20:33)
[2018-09-04] MEDS: VANCOMYCIN HCL 1,000 MG, VIAL MATE ADAPTER 1 EACH in D5W 250 ML IV ×4 (01:53→20:18)
[2018-09-04] MEDS: oxyCODONE 5MG TAB PO ×3 (01:57→20:16)
[2018-09-04] MEDS: HEPARIN SOD (PORCINE) 5000 UNITS/ML VIAL SC ×3 (05:42→20:15)
[2018-09-04] MEDS: ACETAMINOPHEN 500 MG TAB PO ×2 (05:42→17:00)
[2018-09-04 06:51] LABS: BASO # 0.1 10^3/uL (0.0-0.2); BASO % 0.6 % (0.0-1.0); EOS # 0.4 10^3/uL (0.0-0.50); EOS % 3.1 % (0.0-3.0); HEMATOCRIT 36.5 % (42.0-52.0); HEMOGLOBIN 11.8 g/dl (13.5-17.5); LYMPH # 1.4 10^3/uL (1.5-4.5); LYMPH % 11.9 % (24.0-44.0); MEAN CORPUSCULAR HEMOGLOBIN 27.1 pg (27.0-33.0); MEAN CORPUSCULAR HGB CONC 32.3 g/dl (32.0-36.5); MEAN CORPUSCULAR VOLUME 83.7 fl (80.0-96.0); MONO # 1.3 10^3/uL (0.0-0.8); MONO % 10.5 % (0.0-5.0); NEUTROPHILS # 8.6 10^3/uL (1.8-7.7); NEUTROPHILS % 70.9 % (36.0-66.0); PLATELET COUNT, AUTOMATED 346 10^3/uL (150-450); RED BLOOD COUNT 4.36 10^6/uL (4.30-6.10); WHITE BLOOD COUNT 12.1 10^3/uL (4.0-10.0)
[2018-09-04 07:52] LABS: BEDSIDE GLUCOSE 145 MG/DL (70-105)
[2018-09-04] MEDS: HumaLOG INSULIN (NovoLOG) PER UNIT SC ×4 (08:32→20:17)
[2018-09-04] MEDS: FUROSEMIDE 40 MG TAB PO (08:33)
[2018-09-04] MEDS: ASPIRIN 81 MG ENTERIC TAB PO (08:33)
[2018-09-04] MEDS: CARVedilol 12.5 MG TAB PO ×2 (08:34→20:17)
[2018-09-04 11:50] LABS: BEDSIDE GLUCOSE 152 MG/DL (70-105)
[2018-09-04 13:33] LABS: VANCOMYCIN LEVEL TROUGH 13.3 UG/ML (10.0-20.0)
[2018-09-04 16:37] LABS: BEDSIDE GLUCOSE 120 MG/DL (70-105)
[2018-09-04] MEDS ORDERED: HEPARIN SOD (PORCINE) 5000 UNITS/ML VIAL As Ordered (20:11)
[2018-09-04 20:13] LABS: BEDSIDE GLUCOSE 125 MG/DL (70-105)
[2018-09-04] MEDS: ALBUTEROL 90 MCG/ACT 8GM HFA INHALER INH (20:13)
[2018-09-04] MEDS: ATORVASTATIN 10 MG TAB PO (20:15)
[2018-09-05] MEDS: oxyCODONE 5MG TAB PO ×4 (02:13→20:15)
[2018-09-05] MEDS: ACETAMINOPHEN 500 MG TAB PO ×3 (02:13→17:49)
[2018-09-05] MEDS: VANCOMYCIN HCL 1,000 MG, VIAL MATE ADAPTER 1 EACH in D5W 250 ML IV ×4 (02:16→20:14)
[2018-09-05] MEDS: HEPARIN SOD (PORCINE) 5000 UNITS/ML VIAL SC ×3 (05:08→20:15)
[2018-09-05 06:09] LABS: BEDSIDE GLUCOSE 115 MG/DL (70-105)
[2018-09-05 06:38] LABS: BASO # 0.1 10^3/uL (0.0-0.2); BASO % 0.6 % (0.0-1.0); EOS # 0.5 10^3/uL (0.0-0.50); EOS % 4.1 % (0.0-3.0); HEMATOCRIT 35.9 % (42.0-52.0); HEMOGLOBIN 11.8 g/dl (13.5-17.5); IMMATURE GRANULOCYTE % 2.6 % (0-3.0); LYMPH # 1.5 10^3/uL (1.5-4.5); LYMPH % 13.1 % (24.0-44.0); MEAN CORPUSCULAR HEMOGLOBIN 27.6 pg (27.0-33.0); MEAN CORPUSCULAR HGB CONC 32.9 g/dl (32.0-36.5); MEAN CORPUSCULAR VOLUME 84.1 fl (80.0-96.0); MONO # 1.1 10^3/uL (0.0-0.8); MONO % 9.2 % (0.0-5.0); NEUTROPHILS # 8.3 10^3/uL (1.8-7.7); NEUTROPHILS % 70.4 % (36.0-66.0); PLATELET COUNT, AUTOMATED 370 10^3/uL (150-450); RED BLOOD COUNT 4.27 10^6/uL (4.30-6.10); RED CELL DISTRIBUTION WIDTH 14.2 % (11.5-14.5); WHITE BLOOD COUNT 11.8 10^3/uL (4.0-10.0)
[2018-09-05] MEDS: FUROSEMIDE 40 MG TAB PO (08:04)
[2018-09-05] MEDS: CARVedilol 12.5 MG TAB PO ×2 (08:06→20:16)
[2018-09-05] MEDS: ASPIRIN 81 MG ENTERIC TAB PO (08:06)
[2018-09-05] MEDS: HumaLOG INSULIN (NovoLOG) PER UNIT SC ×4 (08:06→20:14)
[2018-09-05 11:30] LABS: ANION GAP 6 MEQ/L (8-16); BLOOD UREA NITROGEN 21 MG/DL (7-18); CARBON DIOXIDE LEVEL 30 MEQ/L (21-32); CHLORIDE LEVEL 104 MEQ/L (98-107); CREATININE FOR GFR 0.72 MG/DL (0.70-1.30); GLOMERULAR FILTRATION RATE > 60.0 (>56); GLUCOSE, FASTING 105 MG/DL (70-100); SODIUM LEVEL 140 MEQ/L (136-145)
[2018-09-05 11:35] LABS: BEDSIDE GLUCOSE 144 MG/DL (70-105)
[2018-09-05 16:40] LABS: BEDSIDE GLUCOSE 97 MG/DL (70-105)
[2018-09-05] MEDS ORDERED: HEPARIN SOD (PORCINE) 5000 UNITS/ML VIAL As Ordered (20:07)
[2018-09-05 20:16] LABS: BEDSIDE GLUCOSE 141 MG/DL (70-105)
[2018-09-05] MEDS: ATORVASTATIN 10 MG TAB PO (20:16)
[2018-09-05] MEDS: EUCERIN 120GM CREAM TOP (20:23)
[2018-09-05] MEDS: ALBUTEROL 90 MCG/ACT 8GM HFA INHALER INH (21:41)
[2018-09-06] MEDS: VANCOMYCIN HCL 1,000 MG, VIAL MATE ADAPTER 1 EACH in D5W 250 ML IV ×3 (01:45→14:33)
[2018-09-06 07:50] LABS: BEDSIDE GLUCOSE 109 MG/DL (70-105)
[2018-09-06] MEDS: ENOXAPARIN 40 MG/0.4 ML SYRINGE (J1650) SC (07:57)
[2018-09-06] MEDS: CARVedilol 12.5 MG TAB PO ×2 (07:58→20:17)
[2018-09-06] MEDS: ASPIRIN 81 MG ENTERIC TAB PO (07:58)
[2018-09-06] MEDS: HumaLOG INSULIN (NovoLOG) PER UNIT SC ×4 (07:58→20:13)
[2018-09-06] MEDS: EUCERIN 120GM CREAM TOP ×2 (07:59→20:18)
[2018-09-06] MEDS: FUROSEMIDE 40 MG TAB PO (07:59)
[2018-09-06 08:30] LABS: BASO # 0.1 10^3/uL (0.0-0.2); BASO % 0.6 % (0.0-1.0); EOS # 0.5 10^3/uL (0.0-0.50); EOS % 3.8 % (0.0-3.0); HEMATOCRIT 37.4 % (42.0-52.0); HEMOGLOBIN 12.2 g/dl (13.5-17.5); IMMATURE GRANULOCYTE % 1.8 % (0-3.0); LYMPH # 1.5 10^3/uL (1.5-4.5); LYMPH % 10.3 % (24.0-44.0); MEAN CORPUSCULAR HEMOGLOBIN 27.9 pg (27.0-33.0); MEAN CORPUSCULAR HGB CONC 32.6 g/dl (32.0-36.5); MEAN CORPUSCULAR VOLUME 85.4 fl (80.0-96.0); MONO # 0.9 10^3/uL (0.0-0.8); MONO % 6.4 % (0.0-5.0); NEUTROPHILS # 10.9 10^3/uL (1.8-7.7); NEUTROPHILS % 77.1 % (36.0-66.0); PLATELET COUNT, AUTOMATED 391 10^3/uL (150-450); RED BLOOD COUNT 4.38 10^6/uL (4.30-6.10); WHITE BLOOD COUNT 14.1 10^3/uL (4.0-10.0)
[2018-09-06 08:53] LABS: ANION GAP 8 MEQ/L (8-16); BLOOD UREA NITROGEN 19 MG/DL (7-18); CALCIUM LEVEL 8.5 MG/DL (8.5-10.1); CARBON DIOXIDE LEVEL 28 MEQ/L (21-32); CHLORIDE LEVEL 101 MEQ/L (98-107); GLOMERULAR FILTRATION RATE > 60.0 (>56); GLUCOSE, FASTING 163 MG/DL (70-100); POTASSIUM SERUM 3.7 MEQ/L (3.5-5.1); SODIUM LEVEL 137 MEQ/L (136-145)
[2018-09-06] MEDS: PIPERACILLIN/TAZOBACTAM SOD 3.375 GM in D5W MINI-BAG PLUS 50 ML IV (10:50)
[2018-09-06 12:48] LABS: BEDSIDE GLUCOSE 146 MG/DL (70-105)
[2018-09-06] MEDS: oxyCODONE 5MG TAB PO ×2 (12:49→20:17)
[2018-09-06] MEDS: ACETAMINOPHEN 500 MG TAB PO (14:33)
[2018-09-06] MEDS: ALBUTEROL 90 MCG/ACT 8GM HFA INHALER INH (14:50)
[2018-09-06 17:05] LABS: BEDSIDE GLUCOSE 117 MG/DL (70-105)
[2018-09-06 20:06] LABS: BEDSIDE GLUCOSE 133 MG/DL (70-105)
[2018-09-06] MEDS: ATORVASTATIN 10 MG TAB PO (20:17)
[2018-09-07] MEDS: oxyCODONE 5MG TAB PO ×2 (02:32→16:07)
[2018-09-07 06:41] LABS: BASO # 0.1 10^3/uL (0.0-0.2); BASO % 0.5 % (0.0-1.0); EOS # 0.5 10^3/uL (0.0-0.50); EOS % 3.9 % (0.0-3.0); HEMATOCRIT 35.4 % (42.0-52.0); HEMOGLOBIN 11.5 g/dl (13.5-17.5); IMMATURE GRANULOCYTE % 1.6 % (0-3.0); LYMPH # 1.5 10^3/uL (1.5-4.5); LYMPH % 11.5 % (24.0-44.0); MEAN CORPUSCULAR HEMOGLOBIN 27.4 pg (27.0-33.0); MEAN CORPUSCULAR HGB CONC 32.5 g/dl (32.0-36.5); MEAN CORPUSCULAR VOLUME 84.3 fl (80.0-96.0); MONO # 1.1 10^3/uL (0.0-0.8); MONO % 8.5 % (0.0-5.0); NEUTROPHILS # 9.5 10^3/uL (1.8-7.7); PLATELET COUNT, AUTOMATED 407 10^3/uL (150-450); RED CELL DISTRIBUTION WIDTH 13.9 % (11.5-14.5); WHITE BLOOD COUNT 12.8 10^3/uL (4.0-10.0)
[2018-09-07 07:08] LABS: ANION GAP 7 MEQ/L (8-16); BLOOD UREA NITROGEN 20 MG/DL (7-18); CALCIUM LEVEL 8.4 MG/DL (8.5-10.1); CARBON DIOXIDE LEVEL 28 MEQ/L (21-32); CHLORIDE LEVEL 103 MEQ/L (98-107); CREATININE FOR GFR 0.71 MG/DL (0.70-1.30); GLOMERULAR FILTRATION RATE > 60.0 (>56); GLUCOSE, FASTING 112 MG/DL (70-100); POTASSIUM SERUM 3.8 MEQ/L (3.5-5.1); SODIUM LEVEL 138 MEQ/L (136-145)
[2018-09-07] MEDS: HumaLOG INSULIN (NovoLOG) PER UNIT SC ×4 (07:30→21:00)
[2018-09-07] MEDS: ACETAMINOPHEN 500 MG TAB PO ×2 (07:52→21:23)
[2018-09-07] MEDS: ASPIRIN 81 MG ENTERIC TAB PO (09:39)
[2018-09-07] MEDS: CARVedilol 12.5 MG TAB PO ×2 (09:40→21:22)
[2018-09-07] MEDS: FUROSEMIDE 40 MG TAB PO (09:40)
[2018-09-07] MEDS: ENOXAPARIN 40 MG/0.4 ML SYRINGE (J1650) SC (09:41)
[2018-09-07] MEDS: EUCERIN 120GM CREAM TOP ×2 (09:41→21:00)
[2018-09-07 12:13] LABS: BEDSIDE GLUCOSE 137 MG/DL (70-105)
[2018-09-07 16:41] LABS: BEDSIDE GLUCOSE 121 MG/DL (70-105)
[2018-09-07 20:07] LABS: BEDSIDE GLUCOSE 130 MG/DL (70-105)
[2018-09-07] MEDS: ATORVASTATIN 10 MG TAB PO (21:22)
[2018-09-08 07:48] LABS: BASO # 0.1 10^3/uL (0.0-0.2); BASO % 0.4 % (0.0-1.0); EOS # 0.4 10^3/uL (0.0-0.50); EOS % 3.6 % (0.0-3.0); HEMOGLOBIN 11.9 g/dl (13.5-17.5); IMMATURE GRANULOCYTE % 0.9 % (0-3.0); LYMPH # 1.2 10^3/uL (1.5-4.5); LYMPH % 9.8 % (24.0-44.0); MEAN CORPUSCULAR HEMOGLOBIN 27.5 pg (27.0-33.0); MEAN CORPUSCULAR HGB CONC 32.2 g/dl (32.0-36.5); MEAN CORPUSCULAR VOLUME 85.5 fl (80.0-96.0); MONO # 0.8 10^3/uL (0.0-0.8); MONO % 6.5 % (0.0-5.0); NEUTROPHILS # 9.7 10^3/uL (1.8-7.7); NEUTROPHILS % 78.8 % (36.0-66.0); PLATELET COUNT, AUTOMATED 407 10^3/uL (150-450); RED BLOOD COUNT 4.33 10^6/uL (4.30-6.10); RED CELL DISTRIBUTION WIDTH 13.8 % (11.5-14.5); WHITE BLOOD COUNT 12.4 10^3/uL (4.0-10.0)
[2018-09-08 08:15] LABS: ANION GAP 7 MEQ/L (8-16); BLOOD UREA NITROGEN 22 MG/DL (7-18); CALCIUM LEVEL 8.5 MG/DL (8.5-10.1); CARBON DIOXIDE LEVEL 28 MEQ/L (21-32); CHLORIDE LEVEL 103 MEQ/L (98-107); GLOMERULAR FILTRATION RATE > 60.0 (>56); GLUCOSE, FASTING 109 MG/DL (70-100); POTASSIUM SERUM 3.8 MEQ/L (3.5-5.1); SODIUM LEVEL 138 MEQ/L (136-145)
[2018-09-08] MEDS: CARVedilol 12.5 MG TAB PO ×2 (08:17→21:17)
[2018-09-08] MEDS: FUROSEMIDE 40 MG TAB PO (08:17)
[2018-09-08] MEDS: oxyCODONE 5MG TAB PO ×2 (08:18→21:18)
[2018-09-08] MEDS: ASPIRIN 81 MG ENTERIC TAB PO (08:18)
[2018-09-08] MEDS: HumaLOG INSULIN (NovoLOG) PER UNIT SC ×4 (08:18→21:00)
[2018-09-08] MEDS: EUCERIN 120GM CREAM TOP ×2 (08:19→21:00)
[2018-09-08] MEDS: ENOXAPARIN 40 MG/0.4 ML SYRINGE (J1650) SC (08:19)
[2018-09-08] MEDS: ACETAMINOPHEN 500 MG TAB PO (10:32)
[2018-09-08] MEDS: ALBUTEROL 90 MCG/ACT 8GM HFA INHALER INH (11:09)
[2018-09-08 11:59] LABS: BEDSIDE GLUCOSE 152 MG/DL (70-105)
[2018-09-08] MEDS: FIORICET TAB PO (12:54)
[2018-09-08] MEDS: ATORVASTATIN 10 MG TAB PO (21:18)
[2018-09-09 00:26] LABS: BEDSIDE GLUCOSE 104 MG/DL (70-105)
[2018-09-09 00:26] LABS: BEDSIDE GLUCOSE 138 MG/DL (70-105)
[2018-09-09 00:26] LABS: BEDSIDE GLUCOSE 96 MG/DL (70-105)
[2018-09-09 07:36] LABS: ANION GAP 5 MEQ/L (8-16); BLOOD UREA NITROGEN 21 MG/DL (7-18); C REACTIVE PROTEIN QUANTITATIV 8.07 MG/DL (0.00-0.30); CALCIUM LEVEL 8.7 MG/DL (8.5-10.1); CARBON DIOXIDE LEVEL 31 MEQ/L (21-32); CHLORIDE LEVEL 103 MEQ/L (98-107); GLOMERULAR FILTRATION RATE > 60.0 (>56); GLUCOSE, FASTING 108 MG/DL (70-100); POTASSIUM SERUM 4.3 MEQ/L (3.5-5.1); SODIUM LEVEL 139 MEQ/L (136-145)
[2018-09-09] MEDS: HumaLOG INSULIN (NovoLOG) PER UNIT SC ×4 (08:06→21:00)
[2018-09-09] MEDS: CARVedilol 12.5 MG TAB PO ×2 (08:06→22:44)
[2018-09-09] MEDS: ENOXAPARIN 40 MG/0.4 ML SYRINGE (J1650) SC (08:06)
[2018-09-09] MEDS: oxyCODONE 5MG TAB PO ×2 (08:07→19:12)
[2018-09-09] MEDS: EUCERIN 120GM CREAM TOP ×2 (08:08→22:44)
[2018-09-09] MEDS: ASPIRIN 81 MG ENTERIC TAB PO (08:08)
[2018-09-09] MEDS: FIORICET TAB PO (11:09)
[2018-09-09 11:34] LABS: BEDSIDE GLUCOSE 129 MG/DL (70-105)
[2018-09-09 17:07] LABS: BEDSIDE GLUCOSE 115 MG/DL (70-105)
[2018-09-09] MEDS: CEPHALEXIN 500 MG CAP PO ×2 (17:54→22:44)
[2018-09-09 20:29] LABS: BEDSIDE GLUCOSE 109 MG/DL (70-105)
[2018-09-09] MEDS: ATORVASTATIN 10 MG TAB PO (22:44)
[2018-09-10 06:33] LABS: ANION GAP 7 MEQ/L (8-16); BLOOD UREA NITROGEN 21 MG/DL (7-18); C REACTIVE PROTEIN QUANTITATIV 6.29 MG/DL (0.00-0.30); CALCIUM LEVEL 8.5 MG/DL (8.5-10.1); CARBON DIOXIDE LEVEL 26 MEQ/L (21-32); CHLORIDE LEVEL 105 MEQ/L (98-107); CREATININE FOR GFR 0.72 MG/DL (0.70-1.30); GLOMERULAR FILTRATION RATE > 60.0 (>56); GLUCOSE, FASTING 105 MG/DL (70-100); POTASSIUM SERUM 4.2 MEQ/L (3.5-5.1); SODIUM LEVEL 138 MEQ/L (136-145)
[2018-09-10] MEDS: oxyCODONE 5MG TAB PO ×2 (06:47→20:18)
[2018-09-10] MEDS: CARVedilol 12.5 MG TAB PO ×2 (08:38→20:16)
[2018-09-10] MEDS: ASPIRIN 81 MG ENTERIC TAB PO (08:38)
[2018-09-10] MEDS: CEPHALEXIN 500 MG CAP PO ×4 (08:38→20:16)
[2018-09-10] MEDS: HumaLOG INSULIN (NovoLOG) PER UNIT SC ×4 (08:39→20:16)
[2018-09-10] MEDS: ENOXAPARIN 40 MG/0.4 ML SYRINGE (J1650) SC (08:39)
[2018-09-10] MEDS: ACETAMINOPHEN 500 MG TAB PO (08:44)
[2018-09-10] MEDS: EUCERIN 120GM CREAM TOP ×2 (08:45→20:18)
[2018-09-10 11:46] LABS: BEDSIDE GLUCOSE 143 MG/DL (70-105)
[2018-09-10] MEDS: FIORICET TAB PO (14:37)
[2018-09-10 16:57] LABS: BEDSIDE GLUCOSE 111 MG/DL (70-105)
[2018-09-10 20:06] LABS: BEDSIDE GLUCOSE 131 MG/DL (70-105)
[2018-09-10] MEDS: ATORVASTATIN 10 MG TAB PO (20:16)
[2018-09-11 07:04] LABS: ANION GAP 5 MEQ/L (8-16); BLOOD UREA NITROGEN 21 MG/DL (7-18); CALCIUM LEVEL 8.6 MG/DL (8.5-10.1); CARBON DIOXIDE LEVEL 30 MEQ/L (21-32); CHLORIDE LEVEL 105 MEQ/L (98-107); CREATININE FOR GFR 0.81 MG/DL (0.70-1.30); GLOMERULAR FILTRATION RATE > 60.0 (>56); GLUCOSE, FASTING 95 MG/DL (70-100); POTASSIUM SERUM 4.3 MEQ/L (3.5-5.1); SODIUM LEVEL 140 MEQ/L (136-145)
[2018-09-11] MEDS: HumaLOG INSULIN (NovoLOG) PER UNIT SC ×2 (07:12→13:07)
[2018-09-11 08:04] LABS: HEMATOCRIT 38.1 % (42.0-52.0); MEAN CORPUSCULAR HEMOGLOBIN 27.4 pg (27.0-33.0); MEAN CORPUSCULAR HGB CONC 31.5 g/dl (32.0-36.5); PLATELET COUNT, AUTOMATED 427 10^3/uL (150-450); RED BLOOD COUNT 4.38 10^6/uL (4.30-6.10); RED CELL DISTRIBUTION WIDTH 13.7 % (11.5-14.5)
[2018-09-11] MEDS: ASPIRIN 81 MG ENTERIC TAB PO (08:42)
[2018-09-11] MEDS: CEPHALEXIN 500 MG CAP PO ×2 (08:42→13:06)
[2018-09-11] MEDS: amLODIPine 5 MG TAB PO (08:42)
[2018-09-11] MEDS: CARVedilol 12.5 MG TAB PO (08:42)
[2018-09-11] MEDS: ENOXAPARIN 40 MG/0.4 ML SYRINGE (J1650) SC (08:43)
[2018-09-11] MEDS: EUCERIN 120GM CREAM TOP (08:43)
[2018-09-11] MEDS: FIORICET TAB PO (08:45)
[2018-09-12 02:22] LABS: BEDSIDE GLUCOSE 112 MG/DL (70-105)
== END 2018-09-11 15:25 | disposition home health service (06) | DRG 383 ==
LOC: M MS5PR 09-07 08:21 → M ED 13:03 → M ED INP 21:47 → M MS5PR 23:00
DX: L03.115 Cellulitis of right lower limb (principal); E46 Unspecified protein-calorie malnutrition; E83.42 Hypomagnesemia; Z68.41 Body mass index [BMI] 40.0-44.9, adult; I10 Essential (primary) hypertension; E11.9 Type 2 diabetes mellitus without complications; E87.6 Hypokalemia; B35.1 Tinea unguium; G43.909 Migraine, unspecified, not intractable, without status migrainosus; E66.01 Morbid (severe) obesity due to excess calories; Z79.84 Long term (current) use of oral hypoglycemic drugs; Z79.82 Long term (current) use of aspirin; Z79.899 Other long term (current) drug therapy

== ENCOUNTER → 2019-09-06 | Outpatient (CLI) | payer OTHER ==
[~2019-09-06] MED LIST changes: +ALBU83IN INH; +AMLO5TAB6 PO; -BIAX500T13 PO; +BIAX500T14 PO; +CEPH500C PO; +METF-839 PO; +NAPR-837 PO; -NAPR500T PO; +OXYCO5TA PO; +QVAR80AE8 INH; +VENTAER INH
--- NOTE | 2019-09-06 09:48 | REP ---
Bilateral lower extremity venous ultrasound: Reflux exam. History: Swelling, evaluate for reflux. Findings: There is no evidence of deep vein thrombosis. There is minimal reflux in the right lower extremity in the proximal greater saphenous vein with the patient standing only. No other reflux is seen on the right. There is an anterior accessory greater saphenous vein visible 4.6 mm in diameter. The greater saphenous vein itself measures 7.3 mm in AP diameter proximally, 6.6 mm at midthigh, and 4.9 mm at the knee. The lesser saphenous vein on the right measures 3.3 mm. The reflux observed with standing in the greater saphenous vein on the right measured 1.9 seconds in duration. In the left lower extremity there is significant deep system venous reflux. No superficial system reflux is seen. The greater saphenous vein measures 6.2 mm proximally, 5.6 mm in AP dimension at midthigh, and 4.1 mm at the knee. There is 5.8 mm lesser saphenous vein diameter. Reflux is observed in the proximal, mid, distal femoral vein as well as in the popliteal vein, greater than 0.5 seconds in duration at each of these levels. Impression: Significant deep system reflux in the left lower extremity. Mild reflux in the proximal greater saphenous vein on the right. Electronically Signed by Ian Hicks MD 09/06/2019 12:52 P
== END ==
LOC: M RAD 07:07
PROVIDERS: ATTEND Surgery Vascular Surgery
DX: I87.2 Venous insufficiency (chronic) (peripheral) (principal); R60.0 Localized edema; R23.8 Other skin changes

== ENCOUNTER → 2020-04-12 | Outpatient (REF) | payer OTHER, MEDICAID ==
[~2020-04-12] MED LIST changes: +CYCL-707 PO; -CYCL10TA PO
[2020-04-12 13:35] LABS: HEMOGLOBIN A1c 7.1 %
[2020-04-12 13:42] LABS: ALBUMIN 3.6 GM/DL (3.2-5.2); ALT/SGPT 34 U/L (12-78); BILIRUBIN,TOTAL 0.9 MG/DL (0.2-1.0); BLOOD UREA NITROGEN 27 MG/DL (7-18); CALCIUM LEVEL 9.4 MG/DL (8.5-10.1); CARBON DIOXIDE LEVEL 33 MEQ/L (21-32); CHLORIDE LEVEL 101 MEQ/L (98-107); CHOLESTEROL LEVEL 153 MG/DL (<200); CHOLESTEROL RISK RATIO 3.255 (<5); CREATININE FOR GFR 1.01 MG/DL (0.70-1.30); GLOMERULAR FILTRATION RATE > 60.0 (>56); GLUCOSE, FASTING 114 MG/DL (70-100); HDL CHOLESTEROL 47 MG/DL (>40); LDL CHOLESTEROL 79 MG/DL (<100); NON-HDL-C 106 MG/DL; POTASSIUM SERUM 3.7 MEQ/L (3.5-5.1); SODIUM LEVEL 142 MEQ/L (136-145); TOTAL PROTEIN 6.8 GM/DL (6.4-8.2); TRIGLYCERIDES LEVEL 135 MG/DL (<150)
== END ==
LOC: M SFHCADAM 12:31
PROVIDERS: ATTEND Physician Assistant
DX: E78.2 Mixed hyperlipidemia (principal); I10 Essential (primary) hypertension; Z68.41 Body mass index [BMI] 40.0-44.9, adult; E11.9 Type 2 diabetes mellitus without complications

== ENCOUNTER → 2021-08-20 | Outpatient (REF) | payer OTHER, MEDICAID ==
[~2021-08-20] MED LIST changes: +AMLO1TAB24 PO; -AMLO5TAB6 PO; -ASPI81TA85 PO; +ASPI81TA86 PO; +HYDR-3490 PO; -HYDR25TAB PO
== END ==
LOC: M SFHCADAM 13:24
PROVIDERS: ATTEND Physician Assistant
DX: H66.011 Acute suppurative otitis media with spontaneous rupture of ear drum, right ear (principal)